=== PATIENT | male | born 1960 | race Caucasian/White ===

== ENCOUNTER 2019-04-04 13:23 | Emergency (ER) | payer MEDICAID, SELFPAY ==
[2019-04-04 13:25] VITALS: BP 147/93; PULSE 103; RESP 18; TEMP 37; O2SAT 98; BMI 26.0
--- NOTE | 2019-04-04 13:40 | RAD_ITS ---
STUDY: X-RAY - LEFT ELBOW REASON FOR EXAM: Male, 59 years old. Injury. Recent fall. TECHNIQUE: 3 view(s) of the elbow. COMPARISON: None. FINDINGS: Normal visualized humerus, radius and ulna. Normal radiocapitellar and ulnotrochlear articulations. The soft tissue structures are unremarkable. There is no demonstrated fracture. RAD/Elbow min 3 Views IMPRESSION: Normal x-ray examination of the elbow. Electronically Signed: Ruiz Bunch MD at 14:50 EDT , Service support ,
--- NOTE | 2019-04-04 13:40 | RAD_ITS ---
STUDY: X-RAY - LEFT WRIST REASON FOR EXAM: Male, 59 years old. Injury. Prior fall. TECHNIQUE: 3 view(s) of the wrist were obtained. COMPARISON: None. FINDINGS: Normal visualized distal radius. Nonunited prior fracture of the ulna styloid. Normal radiocarpal articulation. Normal distal radioulnar articulation. Normal carpal bones. Normal carpal articulations. Normal carpometacarpal articulation of the thumb. Normal second through fifth carpometacarpal articulations. Normal visualized metacarpal bones. The soft tissue structures are unremarkable. There is no demonstrated acute fracture. RAD/Wrist min 3 Views IMPRESSION: No acute fracture. Electronically Signed: Ruiz Bunch MD at 14:49 EDT , Service support ,
--- NOTE | 2019-04-04 14:41 | ED.VISSUMM ---
- ER Visit Summary Date of Service: 04/04/19 Chief Complaint: [Injury to left shoulder, left elbow, and left wrist] History of Present Illness: The patient is a 59 M [resents to the emergency department with complaint of a fall that occurred 2 months ago patient states that one month ago he was seen by his primary care physician and had x-rays of his left shoulder as he was complaining of pain of the shoulder. Patient states the fall occurred when he slipped going down some steps and try to catch himself and his left arm got bent back behind him. Patient states that his primary care physician ordered physical therapy for him however he does not want to drive up to [place] for this as he normally goes to the [place]. Patient would like a referral to local physician and possible physical therapy locally. Patient is ambidextrous.] He denies any chest pain or shortness of breath. Physical Examination: [HEENT-PERRLA, EOMI. Cranial nerves II through XII grossly intact. TMs clear. Mucous membranes moist. No adenopathy. Cardiovascular-regular rate and rhythm without murmur or ectopy Lungs-clear to auscultation, chest wall stable without crepitus or subcu emphysema Abdomen-normoactive bowel sounds, soft, nontender, no rebound or rigidity, no peritoneal signs. Extremities-intact ?4, normal range of motion, normal pulses, atraumatic. Left upper extremity-there is no obvious deformity. There is no ecchymosis or bruising noted. Patient has good range of motion at the shoulder as well as the elbow and left wrist. Patient is able to abduct to 90 degrees and resisted abduction. Neurovascular intact distally.] Test Results: [X-rays of the left elbow as well as the left wrist obtained which were read by radiology and myself as no acute fractures.] Emergency Department Course and Treatment: [Patient will be given referral to orthopedics locally for follow-up.] Treatment Plan: [Patient advised to use anti-inflammatory such as ibuprofen for discomfort.] Disposition: [Discharged home in stable condition] Impression: [Left shoulder, elbow, and wrist sprain-possible internal derangement] This note was generated with Pictation software. It may contain incorrect words, spelling, and punctuation that were not noted in review of the chart prior to signing ED Disposition - Plan for ED Patient: Referrals: Care Physician,No Primary [Primary Care Provider] -
--- NOTE | 2019-04-04 14:44 | ED.DCSUM_ITS ---
- ER Visit Summary Date of Service: 04/04/19 Chief Complaint: [Injury to left shoulder, left elbow, and left wrist] History of Present Illness: The patient is a 59 M [resents to the emergency department with complaint of a fall that occurred 2 months ago patient states that one month ago he was seen by his primary care physician and had x-rays of his left shoulder as he was complaining of pain of the shoulder. Patient states the fall occurred when he slipped going down some steps and try to catch himse lf and his left arm got bent back behind him. Patient states that his primary care physician ordered physical therapy for him however he does not want to drive up to [place] for this as he normally goes to the [place]. Patient would like a referral to local physician and possible physical therapy locally. Patient is ambidextrous.] He denies any chest pain or shortness of breath. Physical Examination: [HEMARIA G-PERRLA, EOMI. Cranial nerves II through XII grossly intact. TMs clear. Mucous membranes moist. No adenopathy. Cardiovascular-regular rate and rhythm without murmur or ectopy Lungs-clear to auscultation, chest wall stable without crepitus or subcu emphysema Abdomen-normoactive bowel sounds, soft, nontender, no rebound or rigidity, no peritoneal signs. Extremities-intact ?4, normal range of motion, normal pulses, atraumatic. Left upper extremity-there is no obvious deformity. There is no ecchymosis or bruising noted. Patient has good range of motion at the shoulder as well as the elbow and left wrist. Patient is able to abduct to 90 degrees and resisted abduction. Neurovascular intact distally.] Test Results: [X-rays of the left elbow as well as the left wrist obtained which were read by radiology and myself as no acute fractures.] Emergency Department Course and Treatment: [Patient will be given referral to orthopedics locally for follow-up.] Treatment Plan: [Patient advised to use anti-inflammatory such as ibuprofen for discomfort.] Disposition: [Discharged home in stable condition] Impression: [Left shoulder, elbow, and wrist sprain-possible internal derangement] This note was generated with [email or web address] dictation software. It may contain incorrect words, spelling, and punctuation that were not noted in review of the chart prior to signing ED Disposition - Plan for ED Patient: Referrals: Care Physician,No Primary [Primary Care Provider] -
--- NOTE | 2019-04-04 14:44 | ED.DEP ---
ED Disposition - Plan for ED Patient: Instructions: ED Sprain Wrist, ED Sprain Shoulder, ED Sprain Elbow Referrals: Care Physician,No Primary [Primary Care Provider] - Tony Hernandez MD [STAFF PHYSICIAN] -
[2019-04-04 15:00] VITALS: RESP 18
== END 2019-04-04 15:01 | disposition home or self-care (01) ==
LOC: ED 13:45
PROVIDERS: Emergency Provider Emergency Medicine
DX: S53.402A Unspecified sprain of left elbow, initial encounter (principal); S63.502A Unspecified sprain of left wrist, initial encounter; S43.402A Unspecified sprain of left shoulder joint, initial encounter; W10.9XXA Fall (on) (from) unspecified stairs and steps, initial encounter; Y93.9 Activity, unspecified; Y92.9 Unspecified place or not applicable; Z72.0 Tobacco use
CPT/HCPCS: 73080; 73110; 99282

== ENCOUNTER 2021-11-22 10:18 | Emergency (ER) | payer MEDICAID, SELFPAY ==
[2021-11-22 10:19] VITALS: BP 123/73; PULSE 95; RESP 18; TEMP 36.8; O2SAT 95; BMI 25.0
[2021-11-22 10:21] VITALS: BP 123/73; PULSE 95; RESP 18; TEMP 36.8; O2SAT 95
--- NOTE | 2021-11-22 10:47 | EX.ED.DYSGE1 ---
HPI History of Present Illness Chief Complaint: General Illness Informant: patient Onset/Context/Timing Onset: Days Context: Gradual Onset Current Severity: Mild Maximum Severity: Moderate Narrative Narrative: Patient presents with cough, body aches, subjective fever, congestion for the last week. Patient states he feels that he is starting to improve. His is here being seen and he wanted to be evaluated and had a Covid test. PFSH PFSH Medical History no medical history no medical history Allergy/AdvReac Type Severity Reaction Status Date / Time diazepam [From Valium] Allergy Other Verified 11/22/21 10:23 phenobarbital Allergy Other Verified 11/22/21 10:23 Social History Smoking Status: Current every day smoker tobacco type: cigarettes ROS ROS ED Constitutional Constitutional ED: Reports fever(s) and subjective Eyes Eyes: Denies blurry vision ENT ENT ED: Denies ear pain or rhinorrhea Cardiovascular Cardiovascular: Denies chest pain Respiratory/Chest Respiratory/Chest: Reports cough and sputum Gastrointestinal Gastrointestinal: Reports diarrhea; Denies nausea or vomiting Musculoskeletal Musculoskeletal: Reports myalgias Integumentary Denies rash Neurologic Neurologic: Denies headache(s) or weakness Allergic/Immunologic Allergic/Immunologic ED: Denies urticaria EXAM Physical Exam Const Vital Signs: 11/22/21 10:19 11/22/21 10:21 11/22/21 10:40 Temperature 98.2 F 98.2 F Temperature Source Temporal Temporal Pulse Rate 95 95 Respiratory Rate 18 18 Respiratory Effort Normal Non-Labored Blood Pressure 123/73 H 123/73 H Blood Pressure Mean 89 89 Pulse Ox 95 95 Oxygen Delivery Method Room Air Room Air Positive well nourished and well developed General Appearance ED: well developed HEENT Reports normocephalic and head/scalp atraumatic Eyes PERRL and EOMs intact bilaterally Neck supple Chest Wall inspection of chest normal and palpation of chest normal Resp normal respiratory effort and clear to auscultation bilaterally Cardio regular rate and regular rhythm GI normal to inspection, nondistended, normoactive bowel sounds Palpation: soft Extremity normal to inspection Neuro oriented x3 and no sensory deficits noted Sensorium / Orientation: alert Motor Exam: strength 5/5 throughout Psych mental status grossly normal Skin no rashes or lesions noted MDM MDM MDM Narrative Medical decision making narrative: Rapid Covid test obtained along with portable chest x-ray. Radiography Chest X-Ray - ED: 1 View, Read by ED Physician, Chronic Changes and No Infiltrates Diagnostic Testing: Clinical Impression(s) from Imaging Studies Chest X-Ray 11/22/21 11:05 IMPRESSION: Hyperinflation. Electronically Signed: Tommy Gee MD at 11:16 EST , Service support , Treatment and Re-Evaluation Comments:: Rapid Covid test is negative. X-ray reveals no focal infiltrates. Patient's also had a rapid test that was negative and she is getting a PCR test. In order to help save supplies I will not do a PCR test on this patient. If his 's test is positive he is to assume that his is also positive. He is doing well and not hypoxic. He will continue supportive care at home. Discharge Plan Triage Chief Complaint: General Illness ED Provider: Yanique Rosales Dx/Rx/DC Orders Clinical Impression: Viral syndrome Instructions: ED Viral Syndrome (Adult) [facility]errals[facility] [Primary Care Provider] - 1-2 Weeks Disposition Disposition: Home, Self Care
--- NOTE | 2021-11-22 11:05 | RAD_ITS ---
STUDY: X-RAY CHEST REASON FOR EXAM: Male, 61 years old. Patient is having cough and body aches and fever for one week. TECHNIQUE: Single AP portable view of the chest. COMPARISON: None. FINDINGS: There is hyperinflation of the lungs consistent with chronic obstructive lung disease (COPD). There is no demonstrated pleural abnormality. Normal size heart. Normal mediastinum and miriam. Normal visualized pulmonary arteries. Normal visualized aortic arch and descending thoracic aorta. Normal visualized thoracic spine. Normal visualized ribs, clavicles, and shoulders. There is no demonstrated abnormality of the visualized soft tissue structures of the upper abdomen. RAD/Chest 1 View (Portable) IMPRESSION: Hyperinflation. Electronically Signed: Tommy Gee MD at 11:16 EST , Service support ,
== END 2021-11-22 12:10 | disposition home or self-care (01) ==
PROVIDERS: Emergency Provider Emergency Medicine
DX: B34.9 Viral infection, unspecified (principal); M79.10 Myalgia, unspecified site; R09.81 Nasal congestion; R19.7 Diarrhea, unspecified; F17.210 Nicotine dependence, cigarettes, uncomplicated
CPT/HCPCS: 71045; 87426; 99282

== ENCOUNTER → 2024-08-04 | Outpatient (CLI) | payer OTHER, SELFPAY ==
--- NOTE | 2024-08-04 17:59 | CT_ITS ---
STUDY: LOW DOSE CT LUNG CANCER SCREENING REASON FOR EXAM: Male, 64 years old. history of smoking RADIATION DOSAGE (If Supplied By Facility): CTDIvol = ( 2.39 ) mGy, DLP = ( 80.71 ) mGycm TECHNIQUE: No contrast was administered. Low dose technique was utilized (average mAS-38 and kVp 120). 1.25 mm axial source images with a slice interval of 1.25-mm were reconstructed in lung windows. 2.5 mm coronal and sagittal reformats. . COMPARISON: Chest radiograph November 22, 2021 NODULES: 2 mm lateral left lower lung subpleural nodule, axial image 177. 3 x 1 mm (averaging 2mm) linear nodular density along the left major fissure, axial image 108 Linear likely atelectasis extending from anterior inferior left lower lobe miriam to the major fissure, axial image 153 and 147-150 Parenchyma: Bilateral, right greater than left, mild paraseptal emphysematous change. Diffuse bilateral hyperexpanded hyperlucent lungs. No airspace consolidation, effusion, pneumothorax. Endobronchial lesion: Mild bilateral diffuse peribronchial thickening. No endobronchial lesion. Aorta: Aortic atherosclerosis without ectasia. Left vertebral artery originates from the arch. CORONARY ARTERIES: Mild multivessel calcified coronary atherosclerosis. Heart: No cardiomegaly. No pericardial effusion. Prominent pericardial and epicardial fat. Pulmonary artery: No main pulmonary arterial enlargement. Mediastinal nodes: No mediastinal or hilar adenopathy. Other chest and abdominal findings: Innumerable thyroid. Unremarkable esophagus. No acute upper abdominal finding. CT/Low Dose CT Lung Screening IMPRESSION: Small 2mm pulmonary nodules which are likely benign given small size, Lung-RADS 2 Moderate emphysematous change. Coronary and aortic atherosclerosis. Lung-RADS category 2 - Continue annual screening with LDCT in 12 months. IMPORTANT NOTES FOR USE: ACR Lung-RADS Version 1.1 Assessment Categories Release Date: 2018 Category: Coded 0-4 bases on nodule(s) with highest degree of suspicion. Negative screen is defined as categories 1 and 2; a positive screen is defined as categories 3 and 4. Category 3 and 4A nodules that are unchanged on interval CT should be coded as category 2, and individuals returned to screening in 12 months. Category 4X: Category 3 or 4 nodules with additional imaging findings that increase the suspicion of lung cancer, such as spiculation, GGN that doubles in size in 1 year, enlarged lymph notes, etc. Category Modifiers: S (significant finding unrelated to lung cancer) Electronically Signed: Aramis Modi MD at 8:54 EDT ,
== END | disposition home or self-care (01) ==
LOC: CT 17:52
DX: Z87.891 Personal history of nicotine dependence (principal)
CPT/HCPCS: 71271